=== PATIENT | male | born 1965 | race Caucasian/White ===

== ENCOUNTER 2017-01-02 16:46 | Emergency (ER) | payer OTHER ==
[2017-01-02 18:05] VITALS: BP 139/82
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
--- NOTE | 2017-01-02 19:54 | XRay Report ---
FINAL REPORT PROCEDURE: XR HIP 2-3V LT TECHNIQUE: LEFT hip radiographs, 2 views each, including AP view of the pelvis. HISTORY: Hip pain COMPARISON: No prior studies are available for comparison. FINDINGS: There is mild cortical irregularity of the cortex of the superior left femoral neck, which may be related to osteophyte formation. No linear fracture line is seen. No joint dislocation. Pelvic ring appears intact. Sacroiliac joints are symmetric in appearance. IMPRESSION: Mild cortical irregularity of left femoral neck may be related to an osteophyte. No linear fracture line is seen. However if there are severe symptoms, further evaluation with CT could be obtained to exclude a nondisplaced fracture
--- NOTE | 2017-01-02 19:55 | XRay Report ---
FINAL REPORT PROCEDURE: XR ELBOW 3+V LT TECHNIQUE: Left elbow, three views HISTORY: elbow pain COMPARISON: No prior studies are available for comparison. FINDINGS: No acute fracture or dislocation is seen. No focal osseous lesions are identified. No joint effusion. IMPRESSION: No acute abnormality is identified
[2017-01-02] MEDS ORDERED: TORADOL IM ONE (20:58)
[2017-01-02] MEDS ORDERED: TYLENOL PO ONE (20:59)
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
== END 2017-01-02 23:46 | disposition home or self-care (01) ==
LOC: ED 16:46
DX: S39.012A Strain of muscle, fascia and tendon of lower back, initial encounter (principal); S76.012A Strain of muscle, fascia and tendon of left hip, initial encounter; M25.522 Pain in left elbow; F17.200 Nicotine dependence, unspecified, uncomplicated; Z88.6 Allergy status to analgesic agent; Z91.010 Allergy to peanuts; V89.2XXA Person injured in unspecified motor-vehicle accident, traffic, initial encounter; Y93.89 Activity, other specified; Y99.9 Unspecified external cause status; Y92.410 Unspecified street and highway as the place of occurrence of the external cause
CPT/HCPCS: 72100

== ENCOUNTER 2019-01-20 00:47 | Emergency (ER) | payer SELFPAY ==
[2019-01-20] MEDS ORDERED: ATIVAN IM PRN (01:25)
[2019-01-20] MEDS ORDERED: XYLOCAINE 2% INFILTRATI ONE (01:25)
[2019-01-20] MEDS ORDERED: HALDOL IM PRN (01:25)
[2019-01-20] MEDS ORDERED: BOOSTRIX IM ONE (01:25)
[2019-01-20] MEDS ORDERED: NACL 0.9% IR ONE (01:25)
[2019-01-20] MEDS ORDERED: NACL 0.9% 500 ML IR ONE (01:26)
[2019-01-20] MEDS ORDERED: XYLOCAINE 1%/ EPI 1:100,000 INFILTRATI ONE (01:26)
--- NOTE | 2019-01-20 01:26 | Emergency Department Report ---
ED General Adult HPI - General Chief complaint: Fall Stated complaint: GLF Time Seen by Provider: 01/20/19 01:01 Source: family, EMS (ems notes not available at time of chart dictation), RN notes reviewed Mode of arrival: Stretcher Limitations: Other (alcohol intoxication) - History of Present Illness Initial comments: This is a 53-year-old gentleman. This patient is not known to this provider previously. He is brought to the hospital by emergency medical services after reported ground level fall, in the context of alcohol consumption, reportedly has laceration to the right parietal scalp. The patient is intoxicated but denies complaints. He makes no endorsement of homicidality or suicidality. He complains of right-sided scalp pain. He denies midline neck pain. He denies extremity weakness, numbness. He is not sure of his last tetanus vaccination. The patient is not accompanied by any friends or family for collateral information. He indicates he is not having chest pain, abdominal pain, or shortness of breath. -: This evening Location: head Radiation: other Quality: other Consistency: other Improves with: other Worsens with: other - Related Data Previous Rx's Medication Instructions Recorded Last Taken Type oxyCODONE /ACETAMINOPHEN [Percocet 1 tab PO Q6HR PRN #20 tablet 09/21/14 Unknown Rx 5/325] Cyclobenzaprine [Flexeril] 10 mg PO TID PRN #30 tablet 05/16/15 Unknown Rx HYDROcodone/APAP 10-325 [[place] 1 each PO Q6HR PRN #16 tablet 05/16/15 Unknown Rx 10-325 mg TAB] Acetaminophen [Acetaminophen 8 650 mg PO Q6H #30 tablet.er 01/02/17 Unknown Rx Hour] Cyclobenzaprine [Flexeril] 10 mg PO TID PRN #15 tablet 01/02/17 Unknown Rx Chlorhexidine Mouthwash [Peridex] 15 ml MM BID #1 bottle 01/20/19 Unknown Rx cephALEXin [Keflex] 500 mg PO Q12HR #10 cap 01/20/19 Unknown Rx Allergies Allergy/AdvReac Type Severity Reaction Status Date / Time aspirin Allergy Unknown Verified 09/21/14 14:12 peanut Allergy Unknown Verified 01/31/15 16:34 ED Review of Systems ROS: Stated complaint: GLF Other details as noted in HPI Comment: Unobtainable due to pts medical conditions (alcohol intoxication) ED Past Medical Hx - Past Medical History Previous Medical History?: Yes Hx Diabetes: Yes Additional medical history: Chronic left ankle pain, high cholesterol - Surgical History Past Surgical History?: Yes Additional Surgical History: L ANKLE SURGERY 2010 - Social History Smoking Status: Current Every Day Smoker Substance Use Type: Alcohol - Medications Home Medications: Home Medications Medication Instructions Recorded Confirmed Last Taken Type oxyCODONE /ACETAMINOPHEN [Percocet 1 tab PO Q6HR PRN #20 tablet 09/21/14 Unknown Rx 5/325] Cyclobenzaprine [Flexeril] 10 mg PO TID PRN #30 tablet 05/16/15 Unknown Rx HYDROcodone/APAP 10-325 [[place] 1 each PO Q6HR PRN #16 tablet 05/16/15 Unknown Rx 10-325 mg TAB] Acetaminophen [Acetaminophen 8 650 mg PO Q6H #30 tablet.er 01/02/17 Unknown Rx Hour] Cyclobenzaprine [Flexeril] 10 mg PO TID PRN #15 tablet 01/02/17 Unknown Rx Chlorhexidine Mouthwash [Peridex] 15 ml MM BID #1 bottle 01/20/19 Unknown Rx cephALEXin [Keflex] 500 mg PO Q12HR #10 cap 01/20/19 Unknown Rx ED Physical Exam - General General appearance: alert, appears intoxicated - Head Head exam: Present: normocephalic, other (there is a right-sided parietal scalp laceration, that is " y " shaped) - Eye Eye exam: Present: normal appearance, PERRL, EOMI. Absent: nystagmus - ENT ENT exam: Present: mucous membranes moist, TM's normal bilaterally, normal external ear exam, other (there is no nasal septal hematoma. There is no hemotympanum. There are no no loosed teeth noted). Absent: normal exam (there is a left-sided lateral lip small laceration, through and through.) - Neck Neck exam: Present: normal inspection, full ROM. Absent: tenderness, meningismus - Respiratory Respiratory exam: Present: normal lung sounds bilaterally. Absent: respiratory distress - Cardiovascular Cardiovascular Exam: Present: regular rate, normal rhythm, normal heart sounds. Absent: bradycardia, tachycardia, irregular rhythm, systolic murmur, diastolic murmur, rubs, gallop - GI/Abdominal GI/Abdominal exam: Present: soft. Absent: distended, tenderness, guarding, rebound, rigid, pulsatile mass - Rectal Rectal exam: Present: deferred - exam: Present: normal inspection, other (chaperoned by nurse Purvi Way) - Extremities Exam Extremities exam: Present: normal inspection, full ROM, other (2+ pulses noted in the bilateral upper, lower extremities. Compartments soft. No long bony tenderness. The pelvis is stable.). Absent: pedal edema, joint swelling, calf tenderness - Back Exam Back exam: Present: normal inspection, full ROM. Absent: tenderness, CVA tenderness (R), CVA tenderness (L), paraspinal tenderness, vertebral tenderness - Neurological Exam Neurological exam: Present: alert, oriented X3, other (Extraocular movements intact. Tongue midline. No facial droop. Facial sensation intact to light touch in the V1, V2, V3 distribution bilaterally. 5 and 5 strength in 4 extremities.. Sensation is intact to light touch in 4 extremities.). Absent: motor sensory deficit - Psychiatric Psychiatric exam: Present: anxious - Skin Skin exam: Present: warm, other (right-sided parietal laceration noted.) ED Course Vital Signs 01/20/19 01/20/19 01/20/19 00:58 01:00 01:15 Temperature 98.1 F Pulse Rate 77 78 77 Respiratory 18 25 H 23 Rate Blood Pressure 115/73 115/73 105/68 Blood Pressure [Right] O2 Sat by Pulse 98 96 97 Oximetry 01/20/19 01/20/19 01/20/19 01:30 01:36 01:45 Temperature 98.2 F Pulse Rate 71 79 70 Respiratory 22 18 20 Rate Blood Pressure 96/55 103/58 Blood Pressure 116/75 [Right] O2 Sat by Pulse 94 96 95 Oximetry 01/20/19 01/20/19 01/20/19 02:00 02:15 02:40 Temperature Pulse Rate 70 71 Respiratory 19 19 Rate Blood Pressure 108/63 105/66 105/66 Blood Pressure [Right] O2 Sat by Pulse 98 99 98 Oximetry 01/20/19 01/20/19 01/20/19 02:46 03:00 03:15 Temperature Pulse Rate 68 66 Respiratory 19 20 Rate Blood Pressure 105/66 102/57 102/57 Blood Pressure [Right] O2 Sat by Pulse 100 98 98 Oximetry 08/18/19 08/18/19 08/18/19 03:30 03:45 04:00 Temperature Pulse Rate 64 65 65 Respiratory 19 19 18 Rate Blood Pressure 98/52 101/53 95/53 Blood Pressure [Right] O2 Sat by Pulse 97 97 98 Oximetry 01/20/19 01/20/19 01/20/19 04:15 04:30 04:45 Temperature Pulse Rate 64 67 69 Respiratory 18 17 20 Rate Blood Pressure 104/58 Blood Pressure [Right] O2 Sat by Pulse 99 99 99 Oximetry 01/20/19 01/20/19 01/20/19 05:00 05:46 07:19 Temperature Pulse Rate 68 62 Respiratory 18 21 Rate Blood Pressure 98/53 97/50 Blood Pressure 106/67 [Right] O2 Sat by Pulse 100 98 98 Oximetry - Reevaluation(s) Reevaluation #1: 01/20/19 03:46 Differential diagnosis, including but not limited to: Lip laceration, scalp laceration, alcohol intoxication, dehydration, electrolyte derangement, acute cranial injury, cervical spine injury, facial injury Assessment and plan: 53-year-old gentleman who is clinically intoxicated, with multiple lacerations, however, remainder physical exam is unremarkable. Scalp laceration repaired, lip laceration repaired, IV fluids ordered, CT scan of the brain negative for acute disease, CT scan of the facial bones, cervical spine pending at this time. Hyperglycemia reviewed and appreciated, given obvious clinical intoxication, and propensity for alcoholics to drop their glucose, we will withhold insulin at this time. Anion gap reviewed and appreciated, likely secondary to ethanol alcohol, and dehydration. Reevaluation #2: 01/20/19 05:29 CT scan of the cervical spine shows no acute fractures. Old injuries noted. CT scan of the facial bones unremarkable. Sleeping comfortably, and in no acute distress. Repeat basic metabolic panel is pending after IV fluids. Care will be transferred to the oncoming physician, Dr. Rachelle Calderon, to reassess for clinical sobriety, follow-up on repeat basic metabolic panel, and discharge when clinically sober. 01/20/19 06:01 - Laceration /Wound Repair Right Lateral Head Wound Location: head (right parietal scalp ) Wound's Depth, Shape: linear, contused tissue Wound Explored: clean Irrigated w/ Saline (ccs): 400 Betadine Prep?: No Volume Anesthetic (ccs): 8 (2 % lidocaine) Wound Debrided: minimal Sterile Dressing Applied?: Yes Progress: placed 7 kee, wound approximated acceptably, patient tolerated without significant difficulty. Left Upper Lateral Face Wound Location: mouth Wound Length (cm): 1 Wound's Depth, Shape: into muscle, contused tissue Wound Explored: clean Irrigated w/ Saline (ccs): 250 Betadine Prep?: No Volume Anesthetic (ccs): 3 (2% lidocaine) Wound Debrided: minimal Suture Size/Type: 5:0 Number of Sutures: 1 Layer Closure?: No Sterile Dressing Applied?: No ED Medical Decision Making - Lab Data Result diagrams: 01/20/19 05:35 Vital Signs 01/20/19 01/20/19 01/20/19 00:58 01:00 01:15 Temperature 98.1 F Pulse Rate 77 78 77 Respiratory 18 25 H 23 Rate Blood Pressure 115/73 115/73 105/68 Blood Pressure [Right] O2 Sat by Pulse 98 96 97 Oximetry 01/20/19 01/20/19 01/20/19 01:30 01:36 01:45 Temperature 98.2 F Pulse Rate 71 79 70 Respiratory 22 18 20 Rate Blood Pressure 96/55 103/58 Blood Pressure 116/75 [Right] O2 Sat by Pulse 94 96 95 Oximetry 01/20/19 01/20/19 02:00 02:15 Temperature Pulse Rate 70 71 Respiratory 19 19 Rate Blood Pressure 108/63 105/66 Blood Pressure [Right] O2 Sat by Pulse 98 99 Oximetry Lab Results 01/20/19 01/20/19 01/20/19 Range/Units 02:05 02:05 02:05 Sodium 133 L (137-145) mmol/L Potassium 4.3 (3.6-5.0) mmol/L Chloride 93.4 L (98-107) mmol/L Carbon Dioxide 17 L (22-30) mmol/L Anion Gap 27 mmol/L BUN 13 (9-20) mg/dL Creatinine 0.7 L (0.8-1.5) mg/dL Estimated GFR > 60 ml/min BUN/Creatinine Ratio 19 % Glucose 345 H (75-100) mg/dL Calcium 9.0 (8.4-10.2) mg/dL Magnesium 2.00 (1.7-2.3) mg/dL Total Creatine Kinase 142 (55-170) units/L Salicylates < 0.3 L (2.8-20.0) mg/dL Acetaminophen < 5.0 L (10.0-30.0) ug/mL Plasma/Serum Alcohol (0-0.07) % 01/20/19 Range/Units 02:05 Sodium (137-145) mmol/L Potassium (3.6-5.0) mmol/L Chloride (98-107) mmol/L Carbon Dioxide (22-30) mmol/L Anion Gap mmol/L BUN (9-20) mg/dL Creatinine (0.8-1.5) mg/dL Estimated GFR ml/min BUN/Creatinine Ratio % Glucose (75-100) mg/dL Calcium (8.4-10.2) mg/dL Magnesium (1.7-2.3) mg/dL Total Creatine Kinase (55-170) units/L Salicylates (2.8-20.0) mg/dL Acetaminophen (10.0-30.0) ug/mL Plasma/Serum Alcohol 0.17 H (0-0.07) % - Radiology Data Radiology results: pending, report reviewed, image reviewed Noncontrast CT scan of the brain negative for significant intracranial disease. Scalp laceration noted, with kee placed. Print Report Referring Physician: TOMY GUTIÉRREZ Patient Name: NICO PIZARRO Date of : 1965 Sex: Male Report Date: 2019-01-20 Report Status: Finalized Findings [facility] [address] [place] [address] Cat Scan Report Signed Patient: NICO PIZARRO MR#: [id number] : 1965 Acct:[id number] Age/Sex: 53 / M ADM Date: 01/20/19 Loc: ED Attending Dr: Ordering Physician: TOMY GUTIÉRREZ MD Date of Service: 01/20/19 Procedure(s): CT head/brain wo con Accession Number(s): [id number] cc: TOMY GUTIÉRREZ MD CT head/brain wo con INDICATION / CLINICAL INFORMATION: Fall with head trauma and pain. TECHNIQUE: All CT scans at this location are performed using CT dose reduction for ALARA by means of automated exposure control. COMPARISON: None available. FINDINGS: There is a right parietal scalp hematoma with skin kee. I do not identify a skull fracture. The visualized paranasal sinuses and mastoid air cells are clear. The ventricular system is normal in size and configuration. No focal lesion or mass effect is seen. There is no evidence of intracranial hemorrhage or major vessel occlusion. IMPRESSION:Small right parietal scalp hematoma/laceration. No evidence of skull fracture or intracranial hemorrhage. Signer Name: Jose Luis Magana MD Signed: 01/20/2019 3:33 AM Workstation Name: [id number] Transcribed By: RT Dictated By: Jose Luis Magana MD Electronically Authenticated By: Jose Luis Magana MD Signed Date/Time: 01/20/19 0333 Critical care attestation.: If time is entered above; I have spent that time in minutes in the direct care of this critically ill patient, excluding procedure time. ED Disposition Clinical Impression: Alcohol intoxication Qualifiers: Complication of substance-induced condition: with unspecified complication Qualified Code(s): F10.929 - Alcohol use, unspecified with intoxication, unspecified Lip laceration Qualifiers: Encounter type: initial encounter Qualified Code(s): S01.511A - Laceration without foreign body of lip, initial encounter Scalp laceration Qualifiers: Encounter type: initial encounter Qualified Code(s): S01.01XA - Laceration without foreign body of scalp, initial encounter Disposition: DC-01 TO HOME OR SELFCARE Is pt being admited?: No Does the pt Need Aspirin: No Condition: Stable Additional Instructions: Please make certain to discontinue, or consume alcohol in moderation in the future. Take [id number] Tylenol and/or Motrin as needed for pain. Patient may alternate warm compresses and ice packs to painful areas on the face and neck. Patient may wash face and scalp lacerations with gentle soap and water once every 24 hours. Left upper lip sutures should be taken out in 5 days. Scalp kee should be taken out in 10-14 days. Patient may follow up with the primary care doctor, urgent care center, or return to the emergency room. Patient should also follow-up with a primary care doctor within the next month. Imaging studies and laboratory findings do not demonstrate any acute emergent condition, however, nonemergent incidental findings were noted, which should be followed up by her primary care doctor within the next 4-6 weeks. Please have a primary care doctor contact the medical records department to obtain patient's medical records for follow-up, with the patient may obtain their own medical records from the medical records department, have a primary care doctor follow- up on nonemergent incidental findings. Patient was also given a tetanus vaccination while here in the emergency room. Return to the emergency room right away with new, worsening or different symptoms, or symptoms not present on the initial emergency room evaluation. Prescriptions: cephALEXin [Keflex] 500 mg PO Q12HR #10 cap Chlorhexidine Mouthwash [Peridex] 15 ml MM BID #1 bottle Referrals: GINNY DE LA FUENTE MD [Primary Care Provider] - 3-5 Days
[2019-01-20] MEDS ORDERED: XYLOCAINE 1% 20 mL ONE (01:29)
[2019-01-20 02:32] LABS: BUN/Creatinine Ratio 19; Blood Urea Nitrogen 13 mg/dL (9-20); Hemolysis Index 8
[2019-01-20] MEDS ORDERED: NACL 0.9% 1000 ML 2,000 ML IV ONE (02:49)
--- NOTE | 2019-01-20 03:38 | Cat Scan Report ---
CT head/brain wo con INDICATION / CLINICAL INFORMATION: Fall with head trauma and pain. TECHNIQUE: All CT scans at this location are performed using CT dose reduction for ALARA by means of automated e xposure control. COMPARISON: None available. FINDINGS: There is a right parietal scalp hematoma with skin kee. I do not identify a skull fracture. The v isualized paranasal sinuses and mastoid air cells are clear. The ventricular system is normal in size and configuration. No focal lesion or mass effect is seen. T here is no evidence of intracranial hemorrhage or major vessel occlusion. IMPRESSION:Small right parietal scalp hematoma/laceration. No evidence of skull fracture or intracran ial hemorrhage. Signer Name: Jose Luis Magana MD Signed: 01/20/2019 3:33 AM Workstation Name: [id number]
--- NOTE | 2019-01-20 03:42 | Cat Scan Report ---
CT cervical spine wo con INDICATION / CLINICAL INFORMATION: Alcohol-related fall with neck trauma and pain. TECHNIQUE: All CT scans at this location are performed using CT dose reduction for ALARA by means of automated e xposure control. COMPARISON: None available. FINDINGS: There is a fracture involving the base of the odontoid process which appears to represent an old unun ited fracture. No soft tissue swelling is seen. There is no evidence of subluxation. There is mild mi d to lower cervical spondylosis. There is mild ossification in the ligamentum nuchae at C6. I see no evidence of a herniated disc or epidural hematoma. The visualized lung apices are clear. IMPRESSION: 1. Fracture of the base of the odontoid process appears old and ununited. 2. 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 3. No evidence of acute fracture or subluxation. Signer Name: Jose Luis Magana MD Signed: 01/20/2019 3:37 AM Workstation Name: [id number]
[2019-01-20] MEDS ORDERED: ANTIBIOTIC OINT TP STA (03:45)
--- NOTE | 2019-01-20 03:45 | Cat Scan Report ---
CT facial bones wo con INDICATION / CLINICAL INFORMATION: Alcohol-related fall with facial trauma and pain. TECHNIQUE: All CT scans at this location are performed using CT dose reduction for ALARA by means of automated e xposure control. COMPARISON: None available. FINDINGS: I do not identify a facial bone fracture. The globes are intact. There is minimal chronic mucosal thi ckening involving the right maxillary antrum. The other paranasal sinuses and mastoid air cells are c lear. IMPRESSION: No acute abnormality. Signer Name: Jose Luis Magana MD Signed: 01/20/2019 3:40 AM Workstation Name: [id number]
[2019-01-20 06:10] LABS: BUN/Creatinine Ratio 15; Blood Urea Nitrogen 9 mg/dL (9-20); Hemolysis Index 7
[2019-01-20 07:20] VITALS: BP 106/67
[2019-01-20] MEDS ORDERED: BETADINE TP SCH (08:00)
== END 2019-01-20 08:25 | disposition home or self-care (01) ==
LOC: ED 00:47
DX: S01.511A Laceration without foreign body of lip, initial encounter (principal); S01.01XA Laceration without foreign body of scalp, initial encounter; F10.929 Alcohol use, unspecified with intoxication, unspecified; E11.9 Type 2 diabetes mellitus without complications; E86.0 Dehydration; M25.572 Pain in left ankle and joints of left foot; E78.00 Pure hypercholesterolemia, unspecified; G89.29 Other chronic pain; F17.200 Nicotine dependence, unspecified, uncomplicated; Z88.6 Allergy status to analgesic agent; Z91.010 Allergy to peanuts; W01.118A Fall on same level from slipping, tripping and stumbling with subsequent striking against other sharp object, initial encounter; Y93.89 Activity, other specified; Y92.89 Other specified places as the place of occurrence of the external cause; Y99.8 Other external cause status
CPT/HCPCS: 12001; 12011; 36415; 70450; 70486; 72125; 80048; 82550; 83735; 90471; 90715; 96360; 96361; 99285; J7030; 80320; G0480

== ENCOUNTER 2019-01-29 12:41 | Emergency (ER) | payer SELFPAY ==
[2019-01-29 13:01] VITALS: BP 115/76
--- NOTE | 2019-01-29 13:33 | Emergency Department Report ---
Suture/Staple Removal - HPI Chief Complaint: Laceration/Recheck/Suture Stated Complaint: STITCHES IN HEAD REMOVED Time Seen by Provider: 01/29/19 13:00 When Sutures or Kee Placed: 8-10 Days Ago Wound Location: scalp and upper lip ED Review of Systems ROS: Stated complaint: STITCHES IN HEAD REMOVED Other details as noted in HPI Comment: All other systems reviewed and negative ED Past Medical Hx - Past Medical History Previous Medical History?: Yes Hx Diabetes: Yes Hx Psychiatric Treatment: Yes Additional medical history: Chronic left ankle pain, high cholesterol - Surgical History Past Surgical History?: Yes Additional Surgical History: L ANKLE SURGERY 2010 - Social History Smoking Status: Current Some Day Smoker - Medications Home Medications: Home Medications Medication Instructions Recorded Confirmed Last Taken Type oxyCODONE /ACETAMINOPHEN [Percocet 1 tab PO Q6HR PRN #20 tablet 09/21/14 Unknown Rx 5/325] Cyclobenzaprine [Flexeril] 10 mg PO TID PRN #30 tablet 05/16/15 Unknown Rx HYDROcodone/APAP 10-325 [[place] 1 each PO Q6HR PRN #16 tablet 05/16/15 Unknown Rx 10-325 mg TAB] Acetaminophen [Acetaminophen 8 650 mg PO Q6H #30 tablet.er 01/02/17 Unknown Rx Hour] Cyclobenzaprine [Flexeril] 10 mg PO TID PRN #15 tablet 01/02/17 Unknown Rx Chlorhexidine Mouthwash [Peridex] 15 ml MM BID #1 bottle 01/20/19 Unknown Rx cephALEXin [Keflex] 500 mg PO Q12HR #10 cap 01/20/19 Unknown Rx Suture Removal Exam - Exam General: Vital signs noted. No distress. Alert and acting appropriately. Wound: No Pathologic Erythema, No Tenderness, No Drainage, No Pus, No Wound Dehiscence Other Systems: All other systems reviewed and are unremarkable. ED Course Vital Signs 01/29/19 12:50 Temperature 98.0 F Pulse Rate 69 Respiratory 20 Rate Blood Pressure 115/76 O2 Sat by Pulse 100 Oximetry ED Recheck MDM - Medical Decision Making 53 y o male presents fo staple removal non bleeding, well healing kee removed without complication one suture removed from left upper lip without complications VSS , no acute distress Critical care attestation.: If time is entered above; I have spent that time in minutes in the direct care of this critically ill patient, excluding procedure time. ED Disposition Clinical Impression: Encounter for staple removal Disposition: TO HOME OR SELFCARE Is pt being admited?: No Does the pt Need Aspirin: No Condition: Stable Instructions: Abrasion (ED) Referrals: PRIMARY CARE, [Primary Care Provider] - 3-5 Days [facility] [Outside] - 3-5 Days [facility] [Outside] - 3-5 Days Forms: Work/School Release Form(ED) Time of Disposition: 13:33
== END 2019-01-29 13:44 | disposition home or self-care (01) ==
LOC: ED 12:41
DX: S01.81XD Laceration without foreign body of other part of head, subsequent encounter (principal); X58.XXXD Exposure to other specified factors, subsequent encounter

== ENCOUNTER 2020-09-14 11:37 | Emergency (ER) | payer SELFPAY ==
--- NOTE | 2020-09-14 14:20 | Emergency Department Report ---
ED Lower Extremity HPI - General Chief Complaint: Extremity Injury, Lower Stated Complaint: RT KNEE PAIN Time Seen by Provider: 09/14/20 14:10 Source: patient Mode of arrival: Ambulatory Limitations: No Limitations - History of Present Illness Initial Comments: 54-year-old male was brought to the ER today by EMS with complaints of right knee pain. Patient states that he was walking out of [employer]. He states that the metal strip thats located at the door that holds the rug down was partly up. He states he did not see it and tripped over it while walking. He states that he did not fall, he was able to catch himself, but in the process he twisted his right knee. He states that he felt a pop in his right knee. He reports pain and swelling to the knee. He states that is worse with movement of the knee and with weightbearing and ambulation. He denies prior issues with the right knee or any surgery to the knee. MD Complaint: knee injury - Related Data Previous Rx's Medication Instructions Recorded Last Taken Type Acetaminophen [Acetaminophen 8 650 mg PO Q8HR PRN #30 tablet.er 09/14/20 Unknown Rx Hour] Allergies Allergy/AdvReac Type Severity Reaction Status Date / Time aspirin Allergy Unknown Verified 09/21/14 14:12 peanut Allergy Unknown Verified 01/31/15 16:34 ED Review of Systems ROS: Stated complaint: RT KNEE PAIN Other details as noted in HPI Comment: All other systems reviewed and negative Constitutional: denies: chills, diaphoresis, fever, malaise, weakness Eyes: denies: eye pain, eye discharge, vision change ENT: denies: ear pain, throat pain, dental pain, hearing loss, epistaxis Respiratory: denies: cough, shortness of breath, SOB with exertion, SOB at rest, wheezing Cardiovascular: denies: chest pain, palpitations Gastrointestinal: denies: abdominal pain, nausea, vomiting, diarrhea, constipation, hematemesis, hematochezia Musculoskeletal: arthralgia. denies: back pain, joint swelling, myalgia Neurological: denies: headache, weakness, paresthesias Psychiatric: denies: anxiety, depression, auditory hallucinations, visual hallucinations, homicidal thoughts, suicidal thoughts Hematological/Lymphatic: denies: easy bleeding, easy bruising, swollen glands ED Past Medical Hx - Past Medical History Previous Medical History?: Yes Hx Diabetes: Yes Hx Psychiatric Treatment: Yes Additional medical history: Chronic left ankle pain, high cholesterol - Surgical History Past Surgical History?: Yes Additional Surgical History: L ANKLE SURGERY 2010 - Social History Smoking Status: Never Smoker Substance Use Type: None - Medications Home Medications: Home Medications Medication Instructions Recorded Confirmed Last Taken Type Acetaminophen [Acetaminophen 8 650 mg PO Q8HR PRN #30 tablet.er 09/14/20 Unknown Rx Hour] ED Physical Exam - General Limitations: No Limitations General appearance: alert, in no apparent distress - Head Head exam: Present: atraumatic, normocephalic, normal inspection - Eye Eye exam: Present: normal appearance, PERRL, EOMI Pupils: Present: normal accommodation - ENT ENT exam: Present: normal exam, mucous membranes moist - Respiratory Respiratory exam: Present: normal lung sounds bilaterally. Absent: respiratory distress - Cardiovascular Cardiovascular Exam: Present: regular rate, normal rhythm, normal heart sounds - Expanded Lower Extremity Exam Right Knee exam: Present: normal inspection, tenderness (Moderate tenderness to palpation mainly to the medial aspect of the right knee). Absent: swelling, abrasion, laceration, ecchymosis, deformity, crepidus (Range of motion mildly reduced due to pain), dislocation, erythema, effusion Lower Leg exam: Present: normal inspection, full ROM. Absent: tenderness, swelling Neuro vascular tendon exam: Present: no vascular compromise. Absent: pulse deficit, motor deficit, sensory deficit, tendon deficit Gait: Positive: not tested/not observed - Neurological Exam Neurological exam: Present: alert, oriented X3, CN II-XII intact - Psychiatric Psychiatric exam: Present: normal affect, normal mood - Skin Skin exam: Present: intact ED Course Vital Signs 09/14/20 15:31 Temperature 96.5 F L Pulse Rate 84 Respiratory 16 Rate Blood Pressure 101/62 [Left] O2 Sat by Pulse 96 Oximetry ED Lower Extremity MDM - Radiology Data Radiology results: report reviewed Patient: NICO PIZARRO MR#: [id number] 7 : 1965 Acct:[id number] Age/Sex: 54 / M ADM Date: 09/14/20 Loc: ED Attending Dr: Ordering Physician: MARIA ELENA WYNN Date of Service: 09/14/20 Procedure(s): XR knee 3V RT Accession Number(s): [id number] cc: MARIA ELENA Torres Time In Minutes: HISTORY:twisted right knee/PAIN COMPARISON: None. TECHNIQUE: AP lateral and obliques views were obtained FINDINGS: Bones: No fracture or dislocation. Joint spaces: Maintained. Soft tissues: No significant abnormality. Additional findings: None. IMPRESSION: 1. No significant abnormality. Signer Name: Steve Mills MD Signed: 09/14/2020 3:01 PM Workstation Name: [id number] Transcribed By: NURA Dictated By: Steve Mills MD Electronically Authenticated By: Steve Mills MD Signed Date/Time: 09/14/201500 DD/ 00 TD/TT: - Differential Diagnosis Sprain, dislocation, fracture, ligament/cartilage injury Critical care attestation.: If time is entered above; I have spent that time in minutes in the direct care of this critically ill patient, excluding procedure time. ED Disposition Clinical Impression: Right knee sprain Disposition: - TO HOME OR SELFCARE Is pt being admited?: No Does the pt Need Aspirin: No Condition: Stable Instructions: Knee Sprain, Adult, [id number] Additional Instructions: Rest, ice and elevate your leg as often as possible. Take the Motrin as prescribed. Recommend that you follow-up with residential treatment specialist in 1 week especially if your symptoms persist. Return to the ER if your symptoms changes or worsens in any way. Prescriptions: Acetaminophen [Acetaminophen 8 Hour] 650 mg PO Q8HR PRN #30 tablet.er PRN Reason: Pain Referrals: LARISSA ESPINOZA MD [Staff Physician] - 7-10 days Time of Disposition: 15:19
--- NOTE | 2020-09-14 15:06 | XRay Report ---
HISTORY:twisted right knee/PAIN COMPARISON: None. TECHNIQUE: AP lateral and obliques views were obtained FINDINGS: Bones: No fracture or dislocation. Joint spaces: Maintained. Soft tissues: No significant abnormality. Additional findings: None. IMPRESSION: 1. No significant abnormality. Signer Name: Steve Mills MD Signed: 09/14/2020 3:01 PM Workstation Name: [id number]
[2020-09-14 15:31] VITALS: BP 101/62
== END 2020-09-14 15:46 | disposition home or self-care (01) ==
LOC: ED 11:37
DX: S83.91XA Sprain of unspecified site of right knee, initial encounter (principal); E11.9 Type 2 diabetes mellitus without complications; E78.00 Pure hypercholesterolemia, unspecified; Z79.899 Other long term (current) drug therapy; Z91.010 Allergy to peanuts; Z88.8 Allergy status to other drugs, medicaments and biological substances; Z98.890 Other specified postprocedural states; X58.XXXA Exposure to other specified factors, initial encounter; Y93.89 Activity, other specified; Y92.89 Other specified places as the place of occurrence of the external cause; Y99.8 Other external cause status